=== PATIENT | female | born 1950 | race Caucasian/White ===

== ENCOUNTER → 2021-06-10 11:54 | Outpatient (REF) | payer MEDICARE, OTHER, SELFPAY ==
--- NOTE | 2021-06-10 12:05 | CA_ITS ---
Transthoracic Echocardiogram Patient (Last, First, Middle): Mariia Sharma, Gender: Female Date of : 1950 Age: 70 Procedure Date: 06/10/2021 Procedure Type: Transthoracic Echocardiogram Location: [facility] Height: 152.4 cm Weight: 40.82 kg BSA: 1.33 m2 Heart Rate: bpm BP: 126 / 74 mmHg Digital Media Manager: TO/YR Referring MD: Ro Vo MD Photography Spotter: Cabrera Randall MD Symptoms: I10 HTN Study Quality: Good ECG Rhythm: Sinus tachycardia Conclusions: - 1. Hyperdynamic LV systolic function with mild LVH with mid cavitary obliteration with dynamic mid cavitary obstructive physiology 2. Mildly dilated left atrium 3. Normal cardiac valvular Dopplers 4. No gross pericardial effusion Findings Left Ventricle Normal left ventricular cavity size. There is mildly increased left ventricular wall thickness. The left ventricular systolic function is hyperdynamic. The visually estimated ejection fraction is >70%. 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 Spectral Doppler is indicative of an impaired relaxation filling pattern. E/E prime ratio is <8, consistent with normal filling pressures. Evidence suggests grade I (mild) diastolic dysfunction. on multiple views there is mid cavitary obliteration. At rest gradient across the mid cavity is 20 mm Hg which increases to 69 mmHg with Valsalva maneuver, consistent with dynamic obstruction Right Ventricle Normal right ventricular cavity size and systolic function. Atria The left atrium is mildly dilated. There is a mobile atrial septum noted. Interatrial shunt cannot be excluded. The right atrium is normal in size. Aortic Valve Normal aortic valve structure and function. There is no aortic valve stenosis. There is no aortic valve regurgitation. increase gradient across aortic valve appears to be secondary to subaortic obstructive physiology Mitral Valve Normal mitral valve structure and function. There is trace mitral valve regurgitation. There is no mitral valve stenosis. Pulmonic Valve The pulmonic valve was not well visualized. Tricuspid Valve Normal tricuspid valve structure. Tricuspid regurgitation envelope is inadequate for calculation of right ventricular systolic pressure. Normal right atrial pressure. Great Vessels All visible segments of the aorta are normal in size. The pulmonary artery was not well visualized. Venous The inferior vena cava is normal in size and collapses greater than 50% with inspiration. Pericardium/Pleural There is no evidence of pericardial effusion. Prior Study Comparison no previous study in the last 5 years for comparison Measurements 2D Linear Measurements IVSd: 1.20 0.6-0.9/0.6-1.0 cm LVIDd: 2.99 3.9-5.3/4.2-5.9 cm LVIDd Index: 2.25 2.4-3.2/2.2-3.1 cm/m2 LVIDs: 2.12 2.0-3.6 cm LVPWd: 1.24 0.7-1.1 cm LA Diam: 2.60 2.7-3.8/3.0-4.0 cm LAIDs Index: 1.95 1.5-2.3 cm/m2 LV Mass: 138.71 67-162/88-224 g LV Mass Index: 104.29 43-95/49-115 g/m2 LVOT Diam: 2.00 3.0+(-)1.3 cm 2D Systolic Function EF 4C: 67.00 >55% EF 2C: 66.70 >55% Mitral Valve MV Pk E: 0.61 MV PK A: 1.31 MV Decel Time: 124.00 E/A: 0.50 E'Lateral: 11.00 E'Medial: 6.74 E/E' Med: 9.10 E/E' Lat: 5.60 PHT: 36.00 MVA PHT: 6.11 Decel Lucas: 4.93 Aortic Valve AoV Pk Brenton: 2.35 AoV Mn Brenton: 1.71 AoV VTI: 0.37 AoV Pk Grad: 22.00 Aov Mn Grad: 14.00 KRUPA Cont.VTI: 2.55 LVOT LVOT Pk Brenton: 2.24 LVOT Mn Brenton: 1.58 LVOT VTI: 0.30 LVOT Pk Grad: 20.00 LVOT Mn Grad: 12.00 LVOT Diam: 2.00 LVOT Area: 3.14 Diastolic Function MV Pk E: 0.61 MV Pk A: 1.31 E/A: 0.50 E'Medial: 6.74 E/E' Med: 9.10 E' Laterial: 11.00 E/E' Lat: 5.60 Right Ventricle TAPSE (mm): 21.20 TVS' Brenton: 15.40 Tricuspid Valve RA Press: 3.00 Great Vessels Aorta Sinus of Valsalva: 3.28 2.0-3.[address] Ridge: 2.40 1.7-3.4 cm Ao Asc: 3.20 2.1-3.4 cm Updated in Other Vendor System with Status of Final Cabrera Randall MD electronically signed on 06/10/2021 5:30:56 PM with status of Final
== END ==
LOC: HO.CARD 11:54
PROVIDERS: Visit Provider Internal Medicine Rheumatology
DX: I10 Essential (primary) hypertension (principal)
CPT/HCPCS: 93306